=== PATIENT | male | born 1970 | race Caucasian/White ===

== ENCOUNTER 2017-01-09 10:20 | Emergency (ER) | payer OTHER ==
[~2017-01-09] VITALS: Ht 175.3 cm; Wt 84.0 kg
[~2017-01-09 10:20] MED LIST: AMITRIPTYLINE H10 MG PO; ANAPROX DS550 M1 PO; CELEXA40 MG PO; CLONAZEPAM1 MG PO; CYCLOBENZAPRINE10 MG PO; HYDROCODON-ACE1 EAC8 PO; NOHOMEMEDS; PROPRANOLOL HCL80 MG PO
[2017-01-09] MEDS ORDERED: TORADOL10 MG PO (12:51)
[2017-01-09 13:41] VITALS: BP 130/79
== END 2017-01-09 13:42 | disposition home or self-care (01) ==
LOC: EME 10:20
DX: S93.402A Sprain of unspecified ligament of left ankle, initial encounter (principal); W18.49XA Other slipping, tripping and stumbling without falling, initial encounter
CPT/HCPCS: 73610; 99281; 99284; J1885

== ENCOUNTER 2018-01-11 12:03 | Emergency (ER) | payer OTHER ==
[~2018-01-11] VITALS: Ht 175.3 cm; Wt 72.7 kg
[~2018-01-11 12:03] MED LIST changes: +TORADOL10 MG PO
[2018-01-11 13:32] LABS: HEMATOCRIT 47.9 % (38.0-50.0); HEMOGLOBIN 16.6 G/DL (12.5-16.6); MCH 34.4 PG (29.0-34.0); MCHC 34.7 G/DL (30.0-36.0); MCV 99.4 FL (86-99); PLATELET COUNT 215 K/uL (156-360); RBC DIS.WIDTH-CV 12.9 % (11.8-14.6); RBC DIS.WIDTH-SD 47.4 % (39-53); RED BLOOD COUNT 4.82 M/uL (4.00-5.50)
[2018-01-11 13:41] LABS: CHLORIDE 104 mEq/L (99-109); POTASSIUM 4.5 mEq/L (3.7-5.4); SODIUM 141 mEq/L (136-147)
[2018-01-11 13:43] LABS: GLUCOSE 93 mg/dL (70-99)
[2018-01-11 13:46] LABS: CREATININE 0.9 mg/dL (0.6-1.3); GFR ESTIMATE (CALCULATED) > 59 mL/min/ (58.99-99999)
[2018-01-11 13:47] LABS: UREA NITROGEN (BUN) 17 mg/dL (9-23)
[2018-01-11 13:51] LABS: TROP-I INTERPRETATION NEGATIVE; TROPONIN-I < 0.01 ng/mL (0.0-0.30)
[2018-01-11] MEDS ORDERED: ZITHROMAX Z-PA250 MG PO (15:52)
[2018-01-11 16:18] VITALS: BP 137/87
== END 2018-01-11 16:21 | disposition home or self-care (01) ==
LOC: EME 12:03
DX: J20.9 Acute bronchitis, unspecified (principal); F41.9 Anxiety disorder, unspecified; F17.200 Nicotine dependence, unspecified, uncomplicated
CPT/HCPCS: 71046; 80048; 84484; 85027; 93005; 99281; 99284

== ENCOUNTER 2018-04-02 05:29 | Emergency (ER) | payer OTHER ==
[~2018-04-02] VITALS: Ht 175.3 cm; Wt 71.5 kg
[~2018-04-02 05:29] MED LIST changes: +ZITHROMAX Z-PA250 MG PO
[2018-04-02 05:49] LABS: HEMATOCRIT 40.7 % (38.0-50.0); HEMOGLOBIN 14.2 G/DL (12.5-16.6); MCH 34.8 PG (29.0-34.0); MCHC 34.9 G/DL (30.0-36.0); MCV 99.8 FL (86-99); PLATELET COUNT 266 K/uL (156-360); RBC DIS.WIDTH-CV 12.3 % (11.8-14.6); RED BLOOD COUNT 4.08 M/uL (4.00-5.50)
[2018-04-02 05:59] LABS: CHLORIDE 104 mEq/L (99-109); POTASSIUM 3.8 mEq/L (3.7-5.4); SODIUM 140 mEq/L (136-147)
[2018-04-02 06:00] LABS: GLUCOSE 113 mg/dL (70-99)
[2018-04-02 06:04] LABS: CREATININE 0.8 mg/dL (0.6-1.3); GFR ESTIMATE (CALCULATED) > 59 mL/min/ (58.99-99999)
[2018-04-02 06:05] LABS: UREA NITROGEN (BUN) 11 mg/dL (9-23)
[2018-04-02 07:37] LABS: TROP-I INTERPRETATION NEGATIVE; TROPONIN-I < 0.01 ng/mL (0.0-0.30)
[2018-04-02] MEDS ORDERED: PEN-VEE K,VEET500 MG PO (08:49)
[2018-04-02 09:30] VITALS: BP 151/92
== END 2018-04-02 09:30 | disposition home or self-care (01) ==
LOC: EME → EDBD 05:29 → EME 05:29
DX: K08.89 Other specified disorders of teeth and supporting structures (principal); R42 Dizziness and giddiness; F41.9 Anxiety disorder, unspecified; F17.210 Nicotine dependence, cigarettes, uncomplicated
CPT/HCPCS: 71046; 80048; 81003; 84484; 85027; 93005; 99281; 99285